=== PATIENT | male | born 1965 | race African-American/Black ===

== ENCOUNTER 2018-06-10 10:14 | Emergency (ER) | payer BC ==
[2018-06-10] MEDS ORDERED: FUROSEMIDE 20 MG TABLET PO ONE (10:47)
--- NOTE | 2018-06-10 10:56 | ER Document Report ---
ED General - General Chief Complaint: Feet Swelling Stated Complaint: FOOT SWELLING Time Seen by Provider: 06/10/18 10:46 Mode of Arrival: Ambulatory Information source: Patient, Relative Notes: 52-year-old male with a history of atrial fibrillation, coronary artery disease , TIA, plantar fasciitis presents with complaint of bilateral lower extremity swelling that started yesterday after he drove 12 hours from [place]. He states yesterday the feet and legs were a lot more swollen but when he awoke this morning he was still concerned because of the swelling. He denies any pain in his calf. He states that he did recently receive a cortisone injection for the plantar fasciitis. Patient denies any shortness of breath, chest pain, dyspnea on exertion, shortness of breath while laying flat. He denies any history of PE and DVT. - Related Data Allergies/Adverse Reactions: NSAIDS (Non-Steroidal Anti-Inflamma Adverse Reaction (Verified 06/10/18 10:47) Past Medical History - General Information source: Patient - Social History Smoking Status: Never Smoker Chew tobacco use (# tins/day): No Frequency of alcohol use: None Drug Abuse: None Lives with: Spouse/Significant other Family History: Reviewed & Not Pertinent Patient has suicidal ideation: No Patient has homicidal ideation: No - Past Medical History Cardiac Medical History: Reports: Hx Atrial Fibrillation, Hx Hypercholesterolemia, Hx Hypertension Endocrine Medical History: Reports: Hx Hyperthyroidism, Hx Hypothyroidism Renal/ Medical History: Denies: Hx Peritoneal Dialysis Review of Systems - Review of Systems Notes: REVIEW OF SYSTEMS: CONSTITUTIONAL : Denies fever, chills, or sweats. Denies recent illness. Denies weight loss, recent hospitalizations. EENT: Denies visual changes, eye pain. Denies nasal or sinus congestion or discharge. Denies sore throat, oral lesions, difficulty swallowing. CARDIOVASCULAR: Denies chest pain. Denies palpitations. RESPIRATORY: Denies cough, cold, or chest congestion. Denies shortness of breath, wheezing. GASTROINTESTINAL: Denies abdominal pain or distention. Denies nausea, vomiting , or diarrhea. Denies blood in vomitus, stools, or per rectum. Denies black, tarry stools. Denies constipation. GENITOURINARY: Denies difficulty urinating, painful urination, frequency, blood in urine, or vaginal discharge. MUSCULOSKELETAL: Denies back or neck pain or stiffness. Denies joint pain or swelling. SKIN: Denies rash, lesions or sores. HEMATOLOGIC : Denies easy bruising or bleeding. LYMPHATIC: Denies swollen glands. NEUROLOGICAL: Denies confusion or altered mental status. Denies passing out or loss of consciousness. Denies dizziness or lightheadedness. Denies headache. Denies weakness or paralysis. Denies problems difficulty with ambulation, slurred speech. Denies sensory loss, numbness, or tingling. Denies seizures. PSYCHIATRIC: Denies anxiety or stress. Denies depression, suicidal ideation, or homicidal ideation. Denies visual or auditory hallucinations. Physical Exam - Vital signs Vitals: Temp Pulse Resp BP Pulse Ox 97.8 F 65 16 137/87 H 98 06/10/18 10:24 06/10/18 10:24 06/10/18 10:24 06/10/18 10:24 06/10/18 10:24 - Notes Notes: PHYSICAL EXAMINATION: GENERAL: Well-appearing, well-nourished and in no acute distress. HEAD: Atraumatic, normocephalic. EYES: Pupils equal round and reactive to light, extraocular movements intact, sclera anicteric, conjunctiva are normal. ENT: Nares patent, oropharynx clear without exudates. Moist mucous membranes. NECK: Normal range of motion, supple without lymphadenopathy LUNGS: Breath sounds clear to auscultation bilaterally and equal. No wheezes rales or rhonchi. HEART: Regular rate and rhythm without murmurs ABDOMEN: Soft, nontender, nondistended abdomen. No guarding, no rebound. No masses appreciated. Musculoskeletal: Normal range of motion, 1+ pitting edema no cyanosis. No calf swelling, no calf tenderness. NEUROLOGICAL: Cranial nerves grossly intact. Normal speech, normal gait. Normal sensory, motor exams PSYCH: Normal mood, normal affect. SKIN: Warm, Dry, normal turgor, no rashes or lesions noted. Course - Re-evaluation Re-evalutation: Laboratory 06/10/18 06/10/18 11:15 11:15 Sodium 145.9 H Potassium 4.5 Chloride 102 Carbon Dioxide 33 H Anion Gap 11 BUN 11 Creatinine 1.12 Est GFR ( Amer) > 60 Est GFR (Non-Af Amer) > 60 Glucose 115 H Calcium 9.6 NT-Pro-B Natriuret Pep 1040 H Chest X-Ray 06/10/18 10:46 IMPRESSION: CARDIAC ENLARGEMENT WITHOUT FAILURE. 06/10/18 11:36 Wells score for DVT is 0 06/10/18 11:36 52-year-old male presents with bilateral lower extremity swelling that started 1 day prior to arrival after he drove 12 hours from [place]. He denies any calf pain, asymmetric swelling. He states that the swelling was worse yesterday and improved today when he awoke. He is currently undergoing treatment for plantar fasciitis. He has no associated dyspnea on exertion, orthopnea, chest pain. He has no prior history of PE or DVT. Upon arrival vitals were reviewed. Patient is mildly hypertensive, afebrile. He does not appear toxic or dehydrated. He is in no acute distress. Lungs are clear, heart is regular. Exam is significant for 1+ pitting edema. I did discuss the findings of the cardiomegaly on chest x-ray and mildly elevated BNP with the patient who is aware of these findings and who follows with a fruit packer face and fill regularly. Patient was provided ZUHAIR hose stockings and 5 days of Lasix 20 mg p.o. Patient will be heading back to [place] tomorrow and will follow up with his doctors when he arrived home. My discharge home 06/10/18 12:52 06/10/18 12:53 - Vital Signs Vital signs: Temp Pulse Resp BP Pulse Ox 97.9 F 65 17 146/92 H 99 06/10/18 12:46 06/10/18 12:46 06/10/18 12:46 06/10/18 12:46 06/10/18 12:46 - Laboratory Result Diagrams: 06/10/18 11:15 Laboratory results interpreted by me: 06/10/18 06/10/18 11:15 11:15 Sodium 145.9 H Carbon Dioxide 33 H Glucose 115 H NT-Pro-B Natriuret Pep 1040 H - Diagnostic Test Radiology reviewed: Image reviewed, Reports reviewed Discharge - Discharge Clinical Impression: Cardiomegaly, Peripheral edema Condition: Good Disposition: HOME, SELF-CARE Instructions: Congestive Heart Failure ([facility]), Edema, Peripheral ([facility]) Additional Instructions: Your chest x-ray today did show an enlarged heart but no evidence of failure. Your lab work today has a mildly elevated BNP which again could indicate heart failure but this is minimally elevated. There is no evidence of fluid overload on your lungs. Your peripheral edema could be an indication of heart failure and as soon as you get back to [place] you should see your primary care physician for this. Prescriptions: Furosemide [Lasix 20 mg Tablet] 20 mg PO DAILY #5 tablet Forms: Elevated Blood Pressure
--- NOTE | 2018-06-10 11:10 | RADIOLOGY REPORT (SQ) ---
EXAM DESCRIPTION: CHEST 2 VIEWS COMPLETED DATE/TIME: 06/10/2018 11:01 am REASON FOR STUDY: leg swelling COMPARISON: None. NUMBER OF VIEWS: Two view. TECHNIQUE: Frontal and lateral radiographic views of the chest acquired. LIMITATIONS: None. FINDINGS: LUNGS AND PLEURA: No opacities, masses or pneumothorax. No pleural effusion. MEDIASTINUM AND HILAR STRUCTURES: No masses. No contour abnormalities. HEART AND VASCULAR STRUCTURES: Heart enlarged without failure. Aorta normal for age. BONES: No acute findings. HARDWARE: None in the chest. OTHER: No other significant finding. IMPRESSION: CARDIAC ENLARGEMENT WITHOUT FAILURE. TECHNICAL DOCUMENTATION: JOB ID: [id number] [employer]- All Rights Reserved Reading location - IP/workstation name: [email or web address]
[2018-06-10 11:44] LABS: ANION GAP 11 (5-19); BLOOD UREA NITROGEN 11 mg/dL (7-20); CALCIUM 9.6 mg/dL (8.4-10.2); CARBON DIOXIDE 33 mmol/L (22-30); CHLORIDE 102 mmol/L (98-107); GLUCOSE 115 mg/dL (75-110); POTASSIUM 4.5 mmol/L (3.6-5.0); SODIUM 145.9 mmol/L (137-145)
[2018-06-10 12:53] VITALS: BP 146/92
== END 2018-06-10 12:47 | disposition home or self-care (01) ==
LOC: ER 10:14
DX: R60.0 Localized edema (principal); I51.7 Cardiomegaly; I25.10 Atherosclerotic heart disease of native coronary artery without angina pectoris; I10 Essential (primary) hypertension; M72.2 Plantar fascial fibromatosis; Z98.890 Other specified postprocedural states; Z88.8 Allergy status to other drugs, medicaments and biological substances
CPT/HCPCS: 36415; 71046; 80048; 83880; 99284